=== PATIENT | female | born 1985 | race Two or more races ===

== ENCOUNTER 2024-07-16 20:38 | Emergency (ER) | payer MEDICAID, SELFPAY ==
[2024-07-16 20:38] VITALS: BMI 41.3
[2024-07-16 22:33] VITALS: BP 123/85; PULSE 96; RESP 18; TEMP 36.8; O2SAT 98
[2024-07-16] MEDS: DEXAMETHASONE SOD PHOS INJ 10 MG/ML VIAL 20 MG PO (23:09)
--- NOTE | 2024-07-16 23:30 | PD.EDURI ---
Upper Respiratory Inf. RME/HPI General Chief Complaint: Dental/Oral/Throat Stated Complaint: SWELLING TO LEFT SIDE FACE Time Seen by Provider: 07/16/24 22:51 Arrival date/time: 07/16/24 20:38 39F with history of HTN and marijuana use presents to ED with several days of throat swelling/pain. Patient was given Augmentin (day 3 of 10) for presumed strep infection. Patient denies recently sexual intercourse. Charlatent has some difficulty swallowing, but is still able to. Limitations: no limitations Related Data Home Medications ?Medication ?Instructions ?Recorded ?Confirmed amlodipine 5 mg tablet (Norvasc) 5 mg PO QDAY 04/18/22 04/18/22 Previous Rx's ?Medication ?Instructions ?Recorded doxycycline monohydrate 100 mg 100 mg PO BID #14 caps 07/19/23 capsule mupirocin 2 % topical ointment 1 applic topical BID #15 grams 07/25/23 Allergies Allergy/AdvReac Type Severity Reaction Status Date / Time DIAL SOAP Allergy Intermediate BODY RASH Uncoded 07/25/23 19:36 Review of Systems Review of Systems Systems Reviewed: All systems reviewed, normal except as documented Constitutional Constitutional: Reports system reviewed and no additional complaints, except as documented, Denies fever(s) and Denies headache(s) ENT Ears, Nose, Mouth, and Throat: Reports as per HPI, Denies disequilibrium, Denies headache(s), Reports sore throat and Reports throat swelling Cardiovascular Cardiovascular: Reports system reviewed and no additional complaints, except as documented, Denies chest pain and Denies dyspnea Respiratory Respiratory: Reports system reviewed and no additional complaints, except as documented, Denies cough and Denies dyspnea Gastrointestinal Gastrointestinal: Reports system reviewed and no additional complaints, except as documented, Denies abdominal pain, Denies nausea and Denies vomiting Neurologic Neurologic: Reports system reviewed and no additional complaints, except as documented, Denies confusion, Denies disequilibrium and Denies headache(s) Psychiatric Psychiatric: Denies confusion Allergic/Immunologic Allergic/Immunologic: Reports throat swelling Past Medical History Past Medical History NEUROLOGIC: Negative Neurological Disorders or Seizures CARDIAC: Positive Cardiac Disorders and Hypertension; Negative Congestive Heart Failure RESPIRATORY: Negative Chronic Obstructive Pulmonary Disease (COPD) or Asthma GASTROINTESTINAL: Positive Gastrointestinal Disorders and Hemorrhoids GENITOURINARY: Negative Genitourinary Disorders or Renal Disease REPRODUCTIVE: Positive Previous Pregnancies MUSCULOSKELETAL: Positive Musculoskeletal Disorders and Scoliosis ENDOCRINE: Negative Endocrine Disorders, Diabetes Mellitus Type 1 or Diabetes Mellitus Type 2 HEMATOLOGIC: Negative Blood Disorders or Sickle Cell Disease OTHER HISTORY: Negative Autoimmune Disease, Blood Transfusions, Blood Transfusion Reaction, Anesthesia Reactions, Organ Transplant, MRSA, Clostridium Difficile or Cancer Family History FAMILY HISTORY: Positive Family Cardiac Disorders; Negative Family Respiratory Disorders, Family Gastrointestinal Problems, Family Cancer, Family Surgery or Family Anesthesia Reaction Surgical History SURGICAL: Positive Tubal Ligation; Negative Cardiac Surgery, Endocrine Surgery, Ear Surgery, Abdominal Surgery, Nephrectomy, Joint Replacement or Organ Transplant Social History SMOKING STATUS: Former smoker SUBSTANCE USE: marijuana (QD) ED Exam General Limitations: Present no limitations General appearance: Present alert and in no apparent distress Head Head exam: Present atraumatic Eye Eye exam: Present normal appearance, PERRL and EOMI ENT ENT exam: Present mucous membranes moist Expanded ENT Exam Throat exam: Present tonsillar erythema, tonsillomegaly, tonsillar exudate and muffled voice; Absent R peritonsillar mass or L peritonsillar mass Neck Neck exam: Present normal inspection, full ROM and trachea midline Chest Chest inspection: Present normal inspection and symmetric chest wall rise Respiratory Respiratory exam: Present normal lung sounds bilaterally Cardiovascular Cardiovascular exam: Present regular rate, normal rhythm and normal heart sounds Abdominal Exam Abdominal exam: Present soft and normal bowel sounds Extremities Exam Extremities exam: Present normal inspection and full ROM Back Exam Back exam: Present normal inspection and full ROM Neurological Exam Neurological exam: Present alert, oriented X3 and CN II-XII intact Psychiatric Psychiatric exam: Present normal affect and normal mood Skin Skin exam: Present warm, dry, intact and normal color Course Quality Measures none Orders Category Date Time Status Strep A Rapid Stat Lab 07/16/24 23:08 Completed Dexamethasone Inj [Decadron Inj] Med 07/16/24 22:51 Discontinued 20 mg PO X1 ONE Vital Signs Vital signs: Vital Signs Temperature 98.2 F 07/16/24 22:33 Pulse Rate 96 07/16/24 22:33 Respiratory Rate 18 07/16/24 22:33 Blood Pressure 123/85 H 07/16/24 22:33 Pulse Oximetry (%) 98 07/16/24 22:33 Oxygen Delivery Method Room Air 07/16/24 22:33 O2 at 98% on RA and WNLs Upper Respiratory Infection MDM Narrative MDM Narrative:: 39F with history of HTN and marijuana use presents to ED with several days of throat swelling/pain. Patient was given Augmentin (day 3 of 10) for presumed strep infection. Patient denies recently sexual intercourse. Shazia has some difficulty swallowing, but is still able to. Physical exam reveals red and swollen oropharynx with exudates. Some muffled voice. Patient is afebrile, calm, and alert. Steroids improved symptoms. Strep confirmed. Cray Fishing Hand given. Patient data External records reviewed:: [facility] previous records Clinical information provided by:: patient Social determinants that could affect healthcare access:: substance use Patient has the following chronic illnesses:: HTN and marijuana use How is presenting disease/condition affected by chronic disease/condition?: uneffected by Evaluation data The following diagnostics were reviewed and interpreted by me:: lab results Lab and/or radiology exams considered but not ordered:: ordered Interpretation Summary: above Medications / Prescriptions Medications or Prescriptions considered but not ordered:: ordered Medication administrations:: Medication Administration History Discontinued Medications Dexamethasone Sodium Phosphate (Dexamethasone Sod Phos Inj 10 Mg/Ml Vial) 20 mg PO X1 ONE Stop: 07/16/24 22:52 Last Admin: 07/16/24 23:09 Dose: 20 mg Documented By: KF above Consultations Consultation(s) initiated? (list below): No Diagnosis Upper Respiratory Differential Diagnosis: upper respiratory infection, croup, otitis media, sinusitis, viral infection, bronchitis, influenza, pharyngitis and other (pharyngeal abscess, strep) Most likely diagnosis given after review of the tests above:: strep pharyngitis Admission Indicated Admission indicated?: not indicated Admission Request Was there a request for admission?: No Disposition Plan Disposition Plan: Discharge Discharge Attestation Discharge Attestation: The patient and all family members were given an opportunity to ask questions and understood the discharge instructions. Discharge instructions specifically effects, indications for sooner follow up or return to the emergency department, and the expected course of current diagnosis. Patient condition: Stable Discharge Plan Plan Patient Disposition: HOME (Self Care) Discharge Disposition comment: Stable Prescriptions/Referrals Prescriptions/Med Rec: No Action amlodipine [Norvasc] 5 mg Tablet 5 mg PO QDAY mupirocin 2 % ointment 1 applic topical BID Qty: 15 0RF doxycycline monohydrate 100 mg capsule 100 mg PO BID Qty: 14 0RF Referrals: Naresh Londono MD [Primary Care Provider] - In 1 week Problem List Clinical Impression: Acute streptococcal pharyngitis Patient/Caregiver Discharge Instructions Education Materials: ED Pharyngitis, Strep (Confirmed) Additional Instructions: Please follow-up with PCP within 24-48 hours and return immediately if symptoms worsen. Ibuprofen/Tylenol can be used simultaneously for greater fever/pain control. Print Language: Slovenian Stand Alone Forms: Patient Portal Info Letter PA/MICROSTRATEGY BI DEVELOPER Supervising Physician PA/MICROSTRATEGY BI DEVELOPER Supervising Physician: Dr. Momin
[2024-07-16 23:42] LABS: Strep A Rapid Positive (Negative)
== END 2024-07-17 00:39 | disposition home or self-care (01) ==
PROVIDERS: Physician Assistant; Emergency Provider Emergency Medicine; PCP Family Medicine
DX: J02.0 Streptococcal pharyngitis (principal); I10 Essential (primary) hypertension
CPT/HCPCS: 87651; 99283; J1100

== ENCOUNTER 2025-02-08 23:53 | Emergency (ER) | payer MEDICAID, SELFPAY ==
[2025-02-08 23:53] VITALS: BMI 41.3
[2025-02-09 00:07] VITALS: BP 135/88; PULSE 88; RESP 20; TEMP 36.4; O2SAT 98
--- NOTE | 2025-02-09 00:11 | PD.EDBACK ---
ED Back Injury Pain RME/HPI General Chief Complaint: Back Pain/Injury Stated Complaint: RIGHT LOWER BACK PAIN Time Seen by Provider: 02/08/25 23:54 Arrival date/time: 02/08/25 23:53 RME / HPI RME / HPI Narrative: See [facility] for Dr. Rooney's HPI Documentation. Related Data Home Medications ?Medication ?Instructions ?Recorded ?Confirmed amlodipine 5 mg tablet (Norvasc) 5 mg PO QDAY 04/18/22 04/18/22 Previous Rx's ?Medication ?Instructions ?Recorded doxycycline monohydrate 100 mg 100 mg PO BID #14 caps 07/19/23 capsule mupirocin 2 % topical ointment 1 applic topical BID #15 grams 07/25/23 acetaminophen 300 mg-codeine 30 mg 2 tab PO Q8H PRN pain #20 tabs 02/09/25 tablet cyclobenzaprine 5 mg tablet 5 mg PO TID PRN muscle spasm #15 02/09/25 tabs ibuprofen 800 mg tablet 800 mg PO Q8H PRN pain #30 tabs 02/09/25 lidocaine 5 % topical patch 2 patch topical QDAY PRN pain #30 02/09/25 (Lidoderm) ea Allergies Allergy/AdvReac Type Severity Reaction Status Date / Time DIAL SOAP Allergy Intermediate BODY RASH Uncoded 07/25/23 19:36 Review of Systems Review of Systems Systems Reviewed: All systems reviewed, normal except as documented Past Medical History Past Medical History CARDIAC: Positive Cardiac Disorders and Hypertension GASTROINTESTINAL: Positive Gastrointestinal Disorders and Hemorrhoids REPRODUCTIVE: Positive Previous Pregnancies MUSCULOSKELETAL: Positive Musculoskeletal Disorders and Scoliosis Family History FAMILY HISTORY: Positive Family Cardiac Disorders Social History SMOKING STATUS: Current some day smoker SUBSTANCE USE: marijuana (QD) ED Exam Narrative Physical exam: See [facility] for Dr. Rooney's Physical Exam Documentation. Course Quality Measures none Orders Category Date Time Status XR lumbar spine 2-3V Stat Exams 02/09/25 00:12 Completed Morphine* Inj Med 02/09/25 00:11 Discontinued 8 mg IM X1 ONE Vital Signs Vital signs: Vital Signs Temperature 97.6 F 02/09/25 00:07 Pulse Rate 88 02/09/25 00:07 Respiratory Rate 20 02/09/25 00:07 Blood Pressure 135/88 H 02/09/25 00:07 Pulse Oximetry (%) 98 02/09/25 00:07 Oxygen Delivery Method Room Air 02/09/25 00:07 Back Pain / Injury MDM Narrative MDM Narrative:: This section includes all my notes and documentations, including HPI, PE, and ED course. Blu Rooney MD HPI: 40 y/o female with Hx of HTN and Scoliosis presents to ED with right lower back pain radiating to the RLE x 3 days. No paralysis. No numbness or tingling. No loss of control of the bladder or bowels. No saddle numbness. No other complaints. ROS: All negative except as documented in HPI. Physical Exam: General: Alert and oriented. In obvious pain. Eyes: Conjunctivae and lids clear. ENT: No nasal congestion. Neck: Supple. Lungs: No respiratory distress. Abdomen: Soft and nontender. Normal bowel sounds. No distension. No rebound or guarding. Back: Equivocal lumbar spinal tenderness with limited range of motion due to pain. Right straight leg raise equivocal. Skin: Warm and dry. Neuro: Alert and oriented X 3. No peripheral motor deficits. I reviewed all diagnostic test results: My interpretation of the L-Spine x-ray is no fracture. At this point, diagnoses include: Right-sided Sciatica Treatment here included: Morphine 8 mg IM She felt much better. Recommended outpatient care. Based on my best medical judgment, made decision no further evaluation or treatment indicated at this time. Patient understands and agrees to the discharge instructions customized and printed, see below. Discharge Instructions from Dr. Rooney: --After evaluation, we are dealing with Sciatica (same as Lumbar Radiculopathy or Spinal Stenosis) where pinched nerve is causing your symptoms. --This condition is difficult because normal pain medications don?t work very well on nerve pain. --Despite the pain, try to resume your normal chores and activities. Because inactivity is terrible for this condition. And activity won?t make your condition worse. Use a cane of stick in your left hand to help stand and walk. --Use Ibuprofen and Cyclobenzaprine and Tylenol with codeine and lidocaine patches as needed. Don't expect the pain to go away completely, hoping to take the edge off. --When resting and sleeping, try left sided position (with your knees to your chest and bending forward). This can take some pressure off the nerve and help your pain. --Apply ice or heat if helpful. --See a private doctor (outside the ER) on 02/11/2025 for further care. Asked to review the official x-ray report from today. Ask to help you get more care not available here in the ER. Such as MRI imaging, physical therapy, and referrals to see specialists. Some choose to have surgery for this condition. But you need to have MRI imaging to confirm the diagnosis and assess the severity to get the best treatments. --Seek immediate medical care with paralysis in your foot, losing control of your bladder or bowels, saddle numbness (anal numbness), or with any concerns. Blu Rooney MD Patient data External records reviewed:: [facility] previous records (Reviewed prior ED records from 07/16/24. Patient was seen for Acute streptococcal pharyngitis. ) Clinical information provided by:: patient Social determinants that could affect healthcare access:: substance use (Marijuana) Patient has the following chronic illnesses:: Hypertension, Hemorrhoids, Scoliosis How is presenting disease/condition affected by chronic disease/condition?: exacerbated by Evaluation data The following diagnostics were reviewed and interpreted by me:: radiology exam(s) Lab and/or radiology exams considered but not ordered:: None Interpretation Summary: I reviewed all diagnostic test results: My interpretation of the L-Spine x-ray is no fracture. Medications / Prescriptions Medications or Prescriptions considered but not ordered:: None Medication administrations:: Medication Administration History Discontinued Medications Morphine Sulfate (Morphine Sulf Inj 4 Mg/Ml Vial) 8 mg IM X1 ONE Stop: 02/09/25 00:12 Last Admin: 02/09/25 00:34 Dose: 8 mg Documented By: CB Treatment here included: Morphine 8 mg IM Consultations Consultation(s) initiated? (list below): No Diagnosis Differential diagnosis back pain/injury: lumbar radiculopathy, sciatica and strain of lumbar region Most likely diagnosis given after review of the tests above:: Right-sided Sciatica Admission Indicated Admission indicated?: not indicated Explain why admission is indicated or not indicated:: With significant improvement and no condition needing emergent intervention, there was no indication for admission. Admission Request Was there a request for admission?: No Disposition Plan Disposition Plan: Discharge Discharge Attestation Discharge Attestation: The patient and all family members were given an opportunity to ask questions and understood the discharge instructions. Discharge instructions specifically effects, indications for sooner follow up or return to the emergency department, and the expected course of current diagnosis. Patient condition: Stable Discharge Plan Plan Patient Disposition: HOME (Self Care) Prescriptions/Referrals Prescriptions/Med Rec: New ibuprofen 800 mg tablet 800 mg PO Q8H PRN (Reason: pain) Qty: 30 0RF acetaminophen-codeine 300-30 mg tablet 2 tab PO Q8H MDD 6 PRN (Reason: pain) Qty: 20 0RF lidocaine [Lidoderm] 5 % adhesive patch,medicated 2 patch topical QDAY PRN (Reason: pain) Qty: 30 0RF Rx Instructions: leave on most painful area for up to 12 hrs cyclobenzaprine 5 mg tablet 5 mg PO TID PRN (Reason: muscle spasm) Qty: 15 0RF No Action amlodipine [Norvasc] 5 mg Tablet 5 mg PO QDAY mupirocin 2 % ointment 1 applic topical BID Qty: 15 0RF doxycycline monohydrate 100 mg capsule 100 mg PO BID Qty: 14 0RF Problem List Clinical Impression: Right sided sciatica Patient/Caregiver Discharge Instructions Discharge Activity: activity as tolerated Education Materials: ED Sciatica Additional Instructions: Discharge Instructions from Dr. Rooney: --After evaluation, we are dealing with Sciatica (same as Lumbar Radiculopathy or Spinal Stenosis) where pinched nerve is causing your symptoms. --This condition is difficult because normal pain medications don?t work very well on nerve pain. --Despite the pain, try to resume your normal chores and activities. Because inactivity is terrible for this condition. And activity won?t make your condition worse. Use a cane of stick in your left hand to help stand and walk. --Use Ibuprofen and Cyclobenzaprine and Tylenol with codeine and lidocaine patches as needed. Don't expect the pain to go away completely, hoping to take the edge off. --When resting and sleeping, try left sided position (with your knees to your chest and bending forward). This can take some pressure off the nerve and help your pain. --Apply ice or heat if helpful. --See a private doctor (outside the ER) on 02/11/2025 for further care. Asked to review the official x-ray report from today. Ask to help you get more care not available here in the ER. Such as MRI imaging, physical therapy, and referrals to see specialists. Some choose to have surgery for this condition. But you need to have MRI imaging to confirm the diagnosis and assess the severity to get the best treatments. --Seek immediate medical care with paralysis in your foot, losing control of your bladder or bowels, saddle numbness (anal numbness), or with any concerns. Print Language: Mongolian Stand Alone Forms: [employer] Award Info., Patient Portal Info Letter
--- NOTE | 2025-02-09 00:12 | XR_ITS ---
EXAMINATION: Lumbar spine 3 views TECHNIQUE: AP lateral: Lateral lower lumbar spine 3 views Date and time: February 09, 2025, 12:46 a.m. INDICATIONS: Onset back pain beginning 3 days ago FINDINGS: Adequate alignment lumbar vertebral bodies No lumbar fracture. Advanced degenerative disc disease L5-S1 No spondylolisthesis IMPRESSION: Advanced degenerative disc disease L5-S1
[2025-02-09] MEDS: MORPHINE SULF INJ 4 MG/ML VIAL 8 MG IM (00:34)
[2025-02-09 00:35] VITALS: BP 118/83; PULSE 81; RESP 20; O2SAT 100
[2025-02-09 01:42] VITALS: BP 118/83; PULSE 87; RESP 18; TEMP 36.7; O2SAT 98
== END 2025-02-09 01:43 | disposition home or self-care (01) ==
LOC: SERX 02-09 01:38
PROVIDERS: Emergency Provider Emergency Medicine; PCP Family Medicine
DX: M54.41 Lumbago with sciatica, right side (principal)
CPT/HCPCS: 72100; 96372; 99283; J2270